=== PATIENT | female | born 1950 | race Caucasian/White ===

== ENCOUNTER → 2018-01-06 | Outpatient (CLI) | payer BC ==
--- NOTE | 2018-01-06 14:21 | KCIC ---
Bilateral digital screening mammograms: Reason for examination: Routine screening. Comparison is made to previous studies dated 12/17/2015 and 10/30/2014. Interpretation was made with the benefit of CAD. The skin and nipples show no abnormalities. No abnormal axillary lymph nodes are seen. The breast parenchyma shows scattered fibroglandular density. (Breast density: Category B.) There continue to be small parenchymal densities bilaterally which are stable. There are no new dominant masses, suspicious calcifications or architectural distortions. Impression: No evidence of malignancy. Recommend routine screening. BI-RADS Category 2: Benign. "Our facility is accredited by the [employer] Mammography Program." This patient's information has been entered into a reminder system for the patient to be notified with the results of her examination and a target date for the next mammogram. Electronically signed by: Patricia Recinos MD (01/06/2018 2:18 PM) [id number]
== END | disposition home or self-care (01) ==
LOC: KCIC MAMMO 10:14
PROVIDERS: ATTEND Nurse Practitioner
DX: Z12.31 Encounter for screening mammogram for malignant neoplasm of breast (principal)
CPT/HCPCS: 77067

== ENCOUNTER → 2019-05-09 | Outpatient (CLI) | payer BC ==
--- NOTE | 2019-05-09 14:07 | KCIC ---
Bilateral digital screening mammograms Reason for examination: Routine screening. History of benign breast biopsy of the right breast. Comparison is made to previous study dated January 06, 2018 and priors Routine CC and MLO digital views obtained. Interpretation was made with the benefit of CAD. The skin and nipples show no abnormalities. No abnormal lymph nodes are seen. The breast parenchyma is scattered fibroglandular elements. (Breast density: Category B.) There are no suspicious masses, suspicious calcifications or architectural distortions. Left outer posterior breast intramammary lymph node is stable. Benign calcifications are present. Within the left upper breast 4 cm from the nipple is a focal asymmetry of both the CC and MLO views which is new. At the right upper breast 7 cm from the nipple there is an asymmetry on the MLO view only new from the prior study. Impression: Asymmetries of both breasts new from the prior studies. Further evaluation with bilateral diagnostic mammography with spot compression CC and MLO views, ML views, and bilateral breast sonography if indicated, is advised. BI-RADS Category 0: Incomplete examination. "Our facility is accredited by the [employer] Mammography [employer]." This patient's information has been entered into a reminder system for the patient to be notified with the results of her examination and a target date for the next mammogram. Electronically signed by: Gautam Flores MD (05/09/2019 2:05 PM) [id number]
== END | disposition home or self-care (01) ==
LOC: KCIC MAMMO 11:11
PROVIDERS: ATTEND Family Medicine
DX: Z12.31 Encounter for screening mammogram for malignant neoplasm of breast (principal); N64.89 Other specified disorders of breast
CPT/HCPCS: 77067

== ENCOUNTER → 2019-05-18 | Outpatient (CLI) | payer BC ==
--- NOTE | 2019-05-18 13:14 | KCIC ---
Bilateral diagnostic digital mammograms: Reason for examination: Nodular densities bilaterally on screening mammogram. Comparison is made to mammographic exam dated 05/09/2019. True lateral and coned compression views in CC and oblique projections were obtained bilaterally. With these additional views, a small nodular parenchymal density persists at approximately the 11:30 B position of the right breast and at the 12:00 a position of the left breast. Further evaluation with ultrasound follow. IMPRESSION: Small nodules persist bilaterally. Ultrasound to follow. BI-RADS Category 0: Incomplete. Needs additional imaging evaluation. Bilateral breast ultrasound: Ultrasound examination bilateral breast and axilla was performed. In the left breast at the 12:00 position 3 cm from the nipple, there is a 1.2 cm elongated fibrocystic lesion with no abnormal vascularity. No other cystic or solid lesions are seen and no abnormal appearing lymph nodes are seen in the axilla. In the right breast, there is a small 6.5 mm hypoechoic fibrocystic lesion located at the 11:30 position 5 cm from the nipple with the patient sitting (this corresponds to the 10:00 position 2 cm from the nipple with the patient supine). This would correspond with the area of mammographic concern. No suspicious-appearing nodules are seen. No abnormal appearing lymph nodes are seen in the axilla. IMPRESSION: Benign fibrocystic lesions bilaterally which correlate with the mammographic findings. Recommend 6 month follow-up with bilateral breast ultrasound. BI-RADS Category 3: Probably Benign. "Our facility is accredited by the [employer] Mammography Program." This patient's information has been entered into a reminder system for the patient to be notified with the results of her examination and a target date for the next mammogram. Electronically signed by: Patricia Recinos MD (05/18/2019 1:11 PM) [place] [id number]
== END | disposition home or self-care (01) ==
LOC: KCIC MAMMO 08:04
PROVIDERS: ATTEND Family Medicine
DX: N63.11 Unspecified lump in the right breast, upper outer quadrant (principal); N63.21 Unspecified lump in the left breast, upper outer quadrant
CPT/HCPCS: 76641; 77066

== ENCOUNTER → 2019-11-15 | Outpatient (CLI) | payer BC ==
--- NOTE | 2019-11-15 18:30 | KCIC ---
Bilateral breast ultrasound: Reason for examination: Follow-up nodules. Comparison is made to previous study dated 05/18/2019. Ultrasound examination was performed bilaterally in the areas of previous sonographic abnormalities and at the axilla. In the right breast, there continues to be a benign-appearing 4.1 mm fibrocystic type lesion at the 10:00 position 2 cm from the nipple which appears to show an interval decrease in size. No abnormal appearing lymph nodes are seen in the axilla. In the left breast, there continues to be a 5.4 mm hypoechoic fibrocystic type nodule at the 12:00 position 3 cm from the nipple which has shown decrease in overall size. No new cystic or solid lesions are seen. No abnormal appearing lymph nodes are seen in the left axilla. IMPRESSION: Benign-appearing fibrocystic lesions bilaterally which appear to have shown interval improvement. Recommend routine mammographic follow-up. BI-RADS Category 2: Benign. "Our facility is accredited by the [employer] Mammography Program." This patient's information has been entered into a reminder system for the patient to be notified with the results of her examination and a target date for the next mammogram. Electronically signed by: Patricia Recinos MD (11/15/2019 6:27 PM) [id number]
== END | disposition home or self-care (01) ==
LOC: KCIC US 13:34
PROVIDERS: ATTEND Family Medicine
DX: R92.8 Other abnormal and inconclusive findings on diagnostic imaging of breast (principal)
CPT/HCPCS: 76641

== ENCOUNTER → 2020-01-10 | Outpatient (CLI) | payer BC ==
--- NOTE | 2020-01-10 15:25 | KCIC ---
EXAM: DUAL ENERGY X-RAY ABSORPTIOMETRY (DEXA). HISTORY: Postmenopausal screening. FINDINGS: The lowest measured T-score is -0.4 in the left hip, based on a bone mineral density of 0.889 g/cm^2. Refer to the worksheets for full detail. There has been a 7.1 percent decrease in density of the left hip and 5.0 percent increase in density of the lumbar spine compared to a study dated 12/28/2008. IMPRESSION: Normal. Bone mineral density yields a T-score of -1.0 or greater. Fracture risk is low. METHODOLOGY: Dual energy x-ray absorptiometry was performed to measure bone mineral density. The following analysis is based on the 2019 Official Positions of the International Society for Clinical Densitometry: Measurements of the hips and the average of L1-L4 are preferred. When the spine and/or hip cannot be feasibly measured or interpreted, or in the setting of hyperparathyroidism, distal radial bone mineral density may be measured. The lumbar spine T-score is based on the average bone mineral density of L1-L4. In the setting of artifact or anatomic abnormality, some lumbar levels may be excluded, and the remaining levels used for calculation. A single lumbar level is not used for diagnosis, and if only a single level is available for assessment, another anatomic site will be used to assign a diagnosis. The hip T-score is based on the bone mineral density measurement of the femoral neck or total proximal femur of either side, whichever is lowest. Bilateral mean values are not used for diagnosis. The forearm T-score is derived from 33% of the distal radius of the nondominant forearm. Electronically signed by: Nafisa Melendez MD (01/10/2020 3:22 PM) [id number]
== END | disposition home or self-care (01) ==
LOC: KCIC DEXA 12:34
PROVIDERS: ATTEND Family Medicine
DX: Z78.0 Asymptomatic menopausal state (principal)
CPT/HCPCS: 77080

== ENCOUNTER → 2021-09-12 | Emergency (ER) | payer BC, OTHER ==
[~2021-09-12] VITALS: Ht 160 cm; Wt 100.9 kg
[~2021-09-12] MED LIST: ACET325T9 PO; ACETAMINOPHEN 325 MG TABLET. PO ONE; BENZ200C47 PO; IBUP-1007 PO
--- NOTE | 2021-09-12 20:47 | PHYS DOC ---
Past Medical History Past Medical History: Asthma Past Surgical History: Hysterectomy Smoking Status: Never Smoker Alcohol Use: None Drug Use: None General Adult EDM: Chief Complaint: FLU SYMPTOM HPI: HPI: 71-year-old female, past medical history asthma, allergies, hysterectomy, presents with 3 days of fever, chills, cough, 1 episode of nausea and vomiting, decreased appetite. Patient states that she was traveling recently and at an e vent with lots of other people. Denies diarrhea or abdominal pain. Denies chest pain, shortness of breath or chest tightness. Review of Systems: Review of Systems: Constitutional: + fever or chills. [] Eyes: Denies change in visual acuity. [] HENT: Denies nasal congestion or sore throat. [] Respiratory: + cough, no shortness of breath. [] Cardiovascular: Denies chest pain or edema. [] GI: Denies abdominal pain, + nausea, vomiting (resolved), no bloody stools or diarrhea. [] : Denies dysuria. [] Musculoskeletal: Denies back pain or joint pain. [] Integument: Denies rash. [] Neurologic: Denies headache, focal weakness or sensory changes. [] Endocrine: Denies polyuria or polydipsia. [] Lymphatic: Denies swollen glands. [] Psychiatric: Denies depression or anxiety. [] Heart Score: C/O Chest Pain: No Risk Factors: Risk Factors: DM, Current or recent (<one month) smoker, HTN, HLP, family history of CAD, obesity. Risk Scores: Score 0 - 3: 2.5% MACE over next 6 weeks - Discharge Home Score 4 - 6: 20.3% MACE over next 6 weeks - Admit for Clinical Observation Score 7 - 10: 72.7% MACE over next 6 weeks - Early Invasive Strategies Current Medications: Current Medications Medications (Trade) Dose Ordered Sig/Ryan Start Time Stop Time Status Last Admin Dose Admin Acetaminophen (Tylenol) 650 mg 1X ONCE 09/12/21 20:45 09/12/21 20:46 Allergies: Allergies: Allergies Coded Allergies Type Severity Reaction Last Updated Verified No Known Drug Allergies 09/12/21 No Physical Exam: PE: Constitutional: Obese, Well developed, well nourished, no acute distress, non-toxic appearance. [] HENT: Normocephalic, atraumatic, bilateral external ears normal, oropharynx moist, no oral exudates, nose normal. [] Eyes: PERRLA, EOMI, conjunctiva normal, no discharge. [] Neck: Normal range of motion, no tenderness, supple, no stridor. [] Cardiovascular:Heart rate regular rhythm, no murmur [] Lungs & Thorax: Bilateral breath sounds clear to auscultation [] Abdomen: Bowel sounds normal, soft, no tenderness, no masses, no pulsatile masses. [] Skin: Warm, dry, no erythema, no rash. [] Back: No tenderness, no CVA tenderness. [] Extremities: No tenderness, no cyanosis, no clubbing, ROM intact, no edema. [] Neurologic: Alert and oriented X 3, normal motor function, normal sensory function, no focal deficits noted. [] Psychologic: Affect normal, judgement normal, mood normal. [] Current Patient Data: Vital Signs: Vital Signs Date Time Temp Pulse Resp B/P (MAP) Pulse Ox O2 Delivery O2 Flow Rate FiO2 09/12/21 20:12 101.3 96 20 110/53 (72) 97 Room Air 101.3 EKG: EKG: [] Radiology/Procedures: Radiology/Procedures: [] Course & Med Decision Making: Course & Med Decision Making Pertinent Labs and Imaging studies reviewed. (See chart for details) Additional Social History: PMD from non-affiliated facility. Patient Lives at home. Family History: Non-pertinent to today's complaint. Nursing Notes Reviewed Previous Medical Records requested via [facility] Web: Reviewed by me. EMERGENT LABS AND DIAGNOSTIC STUDIES: Results were reviewed and interpreted by me as below PROCEDURE: PORTABLE CHEST 1V IMPRESSION: No acute cardiopulmonary process. EMERGENCY DEPARTMENT COURSE/ MEDICAL DECISION MAKING: The patient was placed on a technology program manager, continuous pulse oximetry and was given supplemental oxygen. I examined the patient, evaluated and addressed patient's chief complaint. The patient was treated with tylenol r/o covid, pneumonia, likely viral syndrome. Found to be COVID positive. Defervesced with tylenol and vitals normalized. Well appearing. Chest xray neg. The patient understands that todays Emergency Department evaluation does not represent a comprehensive medical workup, and it is impossible to diagnose all possible illnesses from a single Emergency Department visit. The patient verbalized understanding that it is absolutely necessary to have follow-up with regular primary care physician within 1-2 days for more detailed workup and continued exam. I explained the findings and plan to the patient, who expressed verbal understanding and agreed with plan for discharge and follow up. The patient was given after care instructions and welcomed to return to the ED for re-evaluation in 8-12 hours, especially for any new or worsening symptoms. Patient's blood pressure was elevated (>120/80) but appears stable without evidence of end organ damage, malignant hypertension, hypertensive emergency or urgency. The patient was counseled about the risks of hypertension and urged to pursue outpatient monitoring and therapy within a week with their primary care physician. The patient was stable at the time of discharge with tylenol/ibuprofen, tessalon perles as needed and routine pmd f/u. Strict ED return precautions. DIAGNOSTIC IMPRESSION: 1. COVID 2. viral syndrome 3. cough DISPOSITION: Disposition: Discharge Home. Condition: Improved Follow-Up: PMD Prescriptions: ibuprofen, tylenol, tessalon perles Return to the Emergency Department for new or worsening symptoms. Leonor Disclaimer: Leonor Disclaimer: This electronic medical record was generated, in whole or in part, using a voice recognition dictation system. Departure Departure Impression: Primary Impression: COVID-19 Additional Impressions: Cough Viral syndrome Disposition: HOME / SELF CARE / HOMELESS Condition: STABLE Referrals: TIM DOMINGUEZ DO (PCP) Scripts Acetaminophen (TYLENOL) 325 Mg Tablet 1-2 TAB PO QID, #60 TAB 2 Refills Prov: MARCIO MILLER MD 09/12/21 Ibuprofen (IBUPROFEN) 600 Mg Tablet 600 MG PO PRN Q6HRS PRN for INFLAMMATION, #20 TAB Prov: MARCIO MILLER MD 09/12/21 Benzonatate (BENZONATATE) 200 Mg Capsule 1 CAP PO PRN TID PRN for cough for 7 Days, #21 CAP 0 Refills Prov: MARCIO MILLER MD 09/12/21 MARCIO MILLER MD September 12, 2021 20:47
--- NOTE | 2021-09-12 21:53 | RAD ---
Exam: Chest one view INDICATION: Cough, fever TECHNIQUE: Frontal view of the chest Comparisons: None FINDINGS: The cardiomediastinal silhouette and pulmonary vessels are within normal limits. The lung and pleural spaces are clear. IMPRESSION: No acute cardiopulmonary process. Electronically signed by: Von Bro MD (09/12/2021 9:50 PM) [facility]
[2021-09-12 22:15] VITALS: BP 164/78
== END | disposition home or self-care (01) ==
LOC: ER 19:38
DX: U07.1 COVID-19 (principal); B34.9 Viral infection, unspecified; J45.909 Unspecified asthma, uncomplicated
CPT/HCPCS: 71045; 87426; 99284